=== PATIENT | male | born 1995 | race Caucasian/White ===

== ENCOUNTER 2017-01-21 12:51 | Emergency (ER) | payer BC ==
[~2017-01-21] VITALS: Ht 185.4 cm; Wt 77.1 kg
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
[2017-01-21] MEDS ORDERED: IBUPROFEN 400 MG TABLET ONE (13:14)
--- NOTE | 2017-01-21 13:19 | NUR ---
MEDICATED PATIENT ORDERED
[2017-01-21] MEDS ORDERED: IBUPROFEN 400 MG TABLET PO ONE (13:30)
--- NOTE | 2017-01-21 13:46 | NUR ---
Patient back to room from CT.
[2017-01-21 14:19] VITALS: BP 130/70
--- NOTE | 2017-01-21 14:19 | NUR ---
Patient discharged to home in stable condition. Written and verbal after care instructions given. Patient verbalizes understanding of instruction.
== END 2017-01-21 14:19 | disposition home or self-care (01) ==
LOC: ER 12:55
DX: S06.0X0A Concussion without loss of consciousness, initial encounter (principal); M54.2 Cervicalgia; R51 Headache; V43.52XA Car driver injured in collision with other type car in traffic accident, initial encounter; Y93.89 Activity, other specified; Y92.89 Other specified places as the place of occurrence of the external cause; Y99.8 Other external cause status
CPT/HCPCS: 70450-TC; 72125-TC; A4606; Z7610